=== PATIENT | female | born 1995 | race Caucasian/White ===

== ENCOUNTER → 2016-04-29 | Outpatient (CLI) | payer BC ==
[~2016-04-29] MED LIST: BUPR300T43 PO; FLUO40CA12 PO; FLUT100P6 MC; ONDA8TAB9 PO; PYRI100T2 PO; SULF1TAB35 PO
--- OUTSIDE RECORDS SUMMARY | 2016-04-29 08:22 | XMS REPORT ---
Author ALE [facility] eClinicalWorks Address Unknown Phone Unavailable Care Team Providers Care Car Spotter Name Role Phone ALE ALVARADO Unavailable Allergies No Known Allergies Problems Problem Type Condition Code Onset Dates Condition Status Assessment Major depressive disorder, recurrent episode, moderate F33.1 Active Problem Major depressive disorder, recurrent episode, moderate F33.1 Active Medications No Known Medications Procedures Procedure Coding System Code Date Psych diagnostic evaluation, new patient CPT-4 [id number] Mar 17, 2015 Results No Known Results Summary Purpose eClinicalWorks Submission
--- NOTE | 2016-04-29 12:27 | Diagnostic Imaging Report ---
PROCEDURE: US Gallbladder. TECHNIQUE: Multiple real-time grayscale images were obtained over the right upper quadrant in various projections. INDICATION: Abdominal pain. COMPARISON: There are no prior studies available for comparison. FINDINGS: There is no evidence for cholelithiasis or acute cholecystitis and the common bile duct is not dilated. The liver is not enlarged and there is no focal mass involving the liver. The biliary tree is not abnormally distended. The pancreas and right kidney are within normal limits. There is no mass or free fluid collection evident. IMPRESSION: 1. There is no acute abnormality of the right upper quadrant. 2. If clinical concern regarding an underlying abnormality of the gallbladder persists and further imaging is desired, then a nuclear medicine hepatobiliary scan would be recommended for additional study. Dictated by: Dictated on workstation # [id number]
== END ==
LOC: RAD 08:20
PROVIDERS: ATTEND Nurse Practitioner Primary Care
DX: R10.13 Epigastric pain (principal)
CPT/HCPCS: 76705

== ENCOUNTER → 2016-05-06 | Outpatient (CLI) | payer BC ==
[2016-05-06] MEDS: CATHETER FLUSH 10 ML SYR IV PRN (13:14)
--- NOTE | 2016-05-06 15:35 | Diagnostic Imaging Report ---
EXAMINATION: HIDA with EF measurements Indication: Abdominal pain TECHNIQUE: After the intravenous administration of 4.8 mCi of Tc 99m Choletec, imaging over the abdomen was obtained. This was followed by administration of Ensure orally to stimulate intrinsic CCK secretion, followed by continued imaging with ejection fraction measured. FINDINGS: There is homogeneous uptake in the liver with prompt bile duct and gallbladder filling seen. Bowel activity is seen at 15 minutes. Based on further imaging and gallbladder area of interest activity measurements after the administration of Ensure, the gallbladder ejection fraction is estimated at 10%. IMPRESSION: 1. Normal hepatobiliary uptake and Gallbladder filling. 2. Biliary dyskinesia. Poor gallbladder ejection fraction. Dictated by: Dictated on workstation # [id number]
== END ==
LOC: CARD 12:54
PROVIDERS: ATTEND Nurse Practitioner Family
DX: K82.8 Other specified diseases of gallbladder (principal)
CPT/HCPCS: 78227

== ENCOUNTER 2016-07-08 17:17 | Emergency (ER) | payer BC ==
[~2016-07-08] VITALS: Ht 170.2 cm; Wt 78.0 kg
--- NOTE | 2016-07-08 17:35 | ED Chest Pain ---
General Chief Complaint: Chest Pain Stated Complaint: CHEST PAINS Source: patient Exam Limitations: no limitations History of Present Illness Time seen by provider: 17:34 Initial Comments To ER with epigastric and lower chest pain that began this afternoon at 4 p.m. while at rest. She did have some associated shortness of breath at this time she is back to normal without any dyspnea or chest pain. She had some nausea and sweating as well. She did have an IUD placed this morning and was told to expect some nausea and pain. No fevers or chills. No cough. Timing/Duration: 1-2 days Severity/Quality: aching Location: central, epigastric Activities at Onset: none ASA po FIELD CONTACT PERSON: No Associated Symptoms: No abdominal pain, No back pain, diaphoresis, No dizziness , No edema, No nausea/vomiting Allergies and Home Medications Allergies Coded Allergies: No Known Drug Allergies (Unverified , 07/08/16) Home Medications Bupropion HCl 300 Mg Tab.er.24h, 300 MG PO, (Reported) Fluoxetine HCl 40 Mg Capsule, 40 MG PO, (Reported) Fluticasone Propionate 100 Gm Powder, 100 GM MC, (Reported) Pyridoxine HCl 100 Mg Tablet, 100 MG PO, (Reported) Review of Systems Constitutional: see HPI EENTM: No Symptoms Reported Respiratory: No Symptoms Reported Cardiovascular: See HPI, Chest Pain Gastrointestinal: See HPI, Abdominal Pain Genitourinary: No Symptoms Reported Musculoskeletal: no symptoms reported Skin: no symptoms reported Psychiatric/Neurological: No Symptoms Reported Endocrine: No Symptoms Reported Past Jhkxhsv-Njaynb-Rgszys Hx Patient Social History Recent Foreign Travel: No Contact w/Someone Who Travel: No Physical Exam Vital Signs Vital Sign - Last 12Hours 07/08/16 17:30 Temp 97.7 Pulse 91 Resp 14 B/P (MAP) 121/54 Pulse Ox 100 O2 Delivery Room Air Capillary Refill : General Appearance: No Apparent Distress, WD/WN HEENT: PERRL/EOMI, TMs Normal Neck: Full Range of Motion, Normal Inspection Respiratory: No Accessory Muscle Use, No Respiratory Distress Cardiovascular: Regular Rate, Rhythm, Normal Peripheral Pulses Gastrointestinal: Normal Bowel Sounds, Non Tender, Soft Extremity: Normal Capillary Refill, Normal Inspection Neurologic/Psychiatric: Alert, Oriented x3, No Motor/Sensory Deficits Skin: Normal Color, Warm/Dry Progress/Results/Core Measures Results/Orders Lab Results Laboratory Tests Test 07/08/16 17:39 07/08/16 18:07 Range/Units Urine Color YELLOW Urine Clarity CLEAR Urine pH 7 5-9 Urine Specific [place] 1.015 L 1.016-1.022 Urine Protein 2+ H NEGATIVE Urine Glucose (UA) NEGATIVE NEGATIVE Urine Ketones NEGATIVE NEGATIVE Urine Nitrite NEGATIVE NEGATIVE Urine Bilirubin NEGATIVE NEGATIVE Urine Urobilinogen NORMAL NORMAL MG/DL Urine Leukocyte Esterase 2+ H NEGATIVE Urine RBC (Auto) 5+ H NEGATIVE Urine RBC 5-10 H /HPF Urine WBC 5-10 H /HPF Urine Squamous Epithelial Cells 10-25 H /HPF Urine Crystals PRESENT H /LPF Urine Amorphous Sediment MOD TRAM URATES H /LPF Urine Bacteria MODERATE H /HPF Urine Casts NONE /LPF Urine Mucus NEGATIVE /LPF Urine Culture Indicated YES White Blood Count 15.4 H 4.3-11.0 10^3/uL Red Blood Count 4.63 4.35-5.85 10^6/uL Hemoglobin 13.8 11.5-16.0 G/DL Hematocrit 40 35-52 % Mean Corpuscular Volume 86 80-99 FL Mean Corpuscular Hemoglobin 30 25-34 PG Mean Corpuscular Hemoglobin Concent 35 32-36 G/DL Red Cell Distribution Width 13.1 10.0-14.5 % Platelet Count 329 130-400 10^3/uL Mean Platelet Volume 9.8 7.4-10.4 FL Neutrophils (%) (Auto) 82 H 42-75 % Lymphocytes (%) (Auto) 10 L 12-44 % Monocytes (%) (Auto) 7 0-12 % Eosinophils (%) (Auto) 0 0-10 % Basophils (%) (Auto) 0 0-10 % Neutrophils # (Auto) 12.6 H 1.8-7.8 X 10^3 Lymphocytes # (Auto) 1.6 1.0-4.0 X 10^3 Monocytes # (Auto) 1.1 H 0.0-1.0 X 10^3 Eosinophils # (Auto) 0.1 0.0-0.3 10^3/uL Basophils # (Auto) 0.0 0.0-0.1 10^3/uL D-Dimer 0.44 0.00-0.49 UG/ML Sodium Level 139 135-145 MMOL/L Potassium Level 3.7 3.6-5.0 MMOL/L Chloride Level 109 H 98-107 MMOL/L Carbon Dioxide Level 20 L 21-32 MMOL/L Anion Gap 10 5-14 MMOL/L Blood Urea Nitrogen 9 7-18 MG/DL Creatinine 0.74 0.60-1.30 MG/DL Estimat Glomerular Filtration Rate > 60 BUN/Creatinine Ratio 12 Glucose Level 114 H 70-105 MG/DL Calcium Level 9.3 8.5-10.1 MG/DL Total Bilirubin 0.5 0.1-1.0 MG/DL Aspartate Amino Transf (AST/SGOT) 54 H 5-34 U/L Alanine Aminotransferase (ALT/SGPT) 38 0-55 U/L Alkaline Phosphatase 62 40-136 U/L Total Protein 7.0 6.4-8.2 G/DL Albumin 4.1 3.2-4.5 G/DL Lipase 42 8-78 U/L My Orders Orders - MAG JOSE APRN Cbc With Automated Diff (07/08/16 17:33) Comprehensive Metabolic Panel (07/08/16 17:33) Lipase (07/08/16 17:33) Ua Culture If Indicated (07/08/16 17:33) Chest Pa/Lat (2 View) (07/08/16 17:33) Ekg Tracing (07/08/16 17:33) Fibrin Degradation Products (07/08/16 17:52) Urine Culture (07/08/16 17:39) Manual Differential (07/08/16 18:07) Ondansetron Oral Dissolve Tab (Zofran (07/08/16 19:00) Vital Signs/I&O Vital Sign - Last 12Hours 07/08/16 07/08/16 17:30 17:30 Temp 97.7 Pulse 91 Resp 14 B/P (MAP) 121/54 Pulse Ox 100 O2 Delivery Room Air Room Air Diagnostic Imaging Diagonstic Imaging: Xray Plain Films/CT/US/NM/MRI: chest Comments NAME: MARLA VANCE [facility] REC#: [id number] PT STATUS: REG ER : 1995 PHYSICIAN: MAG JOSE APRN ADMIT DATE: 07/08/16/ER Draft Date of Exam:07/08/16 CHEST PA/LAT (2 VIEW) INDICATION: 20-year-old female with shortness of breath and chest pain. COMPARISON: None. FINDINGS: PA and lateral films of the chest show prominent central lung markings with peribronchial cuffing. Some basilar atelectatic infiltrates seen but no significant consolidations. Cardiac contour is normal. There is no effusion or pneumothorax. Soft tissues and bony thorax are normal. IMPRESSION: Central reactive airway changes such as bronchitis with some minimal perihilar and bibasilar atelectatic infiltrates but no significant consolidations. Dictated on workstation # [id number] Dict: 07/08/16 1808 Trans: 07/08/16 1811 JERRI [id number] Interpreted by: ANDRE VILLALOBOS MD Electronically signed by: Departure Communication Progress Notes 1858-patient has been without chest pain or shortness of breath during her entire ER stay. Her only complaint is of some nausea. Impression Impression: Primary Impression: Urinary tract infection Additional Impressions: Leukocytosis chest pain resolved Departure-Patient Inst. Decision time for Depature: 18:58 Referrals: ALONDRA BOND DO (PCP/Family) Primary Care Physician Patient Instructions: Chest Pain That Is Not Caused by the Heart (DC) Add. Discharge Instructions: 1. Return to ER for any concerns 2. Nausea medication and antibiotics as directed 3. Follow-up with your doctor later this week All discharge instructions reviewed with patient and/or family. Voiced understanding. Scripts Sulfamethoxazole/Trimethoprim (Bactrim Ds Tablet) 1 Each Tablet 1 EACH PO BID, #10 TAB Prov: MAG JOSE APRN 07/08/16 Ondansetron (Zofran Odt) 8 Mg Tab.rapdis 8 MG PO Q6H Y for NAUSEA/VOMITING-1ST LINE, #10 TAB Prov: MAG JOSE VP STRATEGIC PLANNING 07/08/16 MAG JOSE VP STRATEGIC PLANNING July 08, 2016 17:35
[2016-07-08] MEDS ORDERED: FLUT100P6 MC (17:39)
[2016-07-08] MEDS ORDERED: PYRI100T2 PO (17:39)
[2016-07-08] MEDS ORDERED: FLUO40CA12 PO (17:39)
[2016-07-08] MEDS ORDERED: BUPR300T43 PO (17:39)
[2016-07-08 17:49] LABS: BILIRUBIN,URINE NEGATIVE (NEGATIVE); KETONES,URINE NEGATIVE (NEGATIVE); LEUKOCYTE ESTERASE ,URINE 2+ (NEGATIVE); NITRITE,URINE NEGATIVE (NEGATIVE); PH,URINE 7 (5-9); PROTEIN,URINE 2+ (NEGATIVE); UROBILINOGEN,URINE NORMAL (NORMAL)
--- NOTE | 2016-07-08 18:12 | Diagnostic Imaging Report ---
INDICATION: 20-year-old female with shortness of breath and chest pain. COMPARISON: None. FINDINGS: PA and lateral films of the chest show prominent central lung markings with peribronchial cuffing. Some basilar atelectatic infiltrates seen but no significant consolidations. Cardiac contour is normal. There is no effusion or pneumothorax. Soft tissues and bony thorax are normal. IMPRESSION: Central reactive airway changes such as bronchitis with some minimal perihilar and bibasilar atelectatic infiltrates but no significant consolidations. Dictated by: Dictated on workstation # [id number]
[2016-07-08 18:26] LABS: BASOPHILS % (AUTO) 0 % (0-10); EOSINOPHILS # (AUTO) 0.1 10^3/uL (0.0-0.3); EOSINOPHILS % (AUTO) 0 % (0-10); LYMPHOCYTES # (AUTO) 1.6 X 10^3 (1.0-4.0); LYMPHOCYTES % (AUTO) 10 % (12-44); MEAN CORPUSCULAR HEMOGLOBIN 30 PG (25-34); MEAN CORPUSCULAR HGB CONC 35 G/DL (32-36); MEAN CORPUSCULAR VOLUME 86 FL (80-99); MEAN PLATELET VOLUME 9.8 FL (7.4-10.4); MONOCYTES # (AUTO) 1.1 X 10^3 (0.0-1.0); MONOCYTES % (AUTO) 7 % (0-12); NEUTROPHILS # (AUTO) 12.6 X 10^3 (1.8-7.8); NEUTROPHILS % (AUTO) 82 % (42-75); PLATELET COUNT 329 10^3/uL (130-400); RED BLOOD COUNT 4.63 10^6/uL (4.35-5.85); RED CELL DISTRIBUTION WIDTH 13.1 % (10.0-14.5); WHITE BLOOD COUNT 15.4 10^3/uL (4.3-11.0)
[2016-07-08 18:39] LABS: ALANINE AMINOTRANSFERASE 38 U/L (0-55); ALBUMIN 4.1 G/DL (3.2-4.5); ANION GAP 10 MMOL/L (5-14); ASPARTATE AMINO TRANSFERASE 54 U/L (5-34); BILIRUBIN,TOTAL 0.5 MG/DL (0.1-1.0); BLOOD UREA NITROGEN 9 MG/DL (7-18); BUN/CREATININE RATIO 12; CALCIUM 9.3 MG/DL (8.5-10.1); CARBON DIOXIDE 20 MMOL/L (21-32); CHLORIDE 109 MMOL/L (98-107); CREATININE SERUM 0.74 MG/DL (0.60-1.30); GFR ESTIMATED > 60; GLUCOSE 114 MG/DL (70-105); LIPASE 42 U/L (8-78); POTASSIUM 3.7 MMOL/L (3.6-5.0); SODIUM 139 MMOL/L (135-145)
[2016-07-08 18:58] VITALS: BP 120/68
[2016-07-08] MEDS ORDERED: ONDA8TAB9 PO (18:59)
[2016-07-08] MEDS ORDERED: SULF1TAB35 PO (18:59)
[2016-07-08] MEDS ORDERED: ONDANSETRON 4 MG (ZOFRAN) ORAL DISSOLVE TAB PO ONE (19:00)
[2016-07-08 19:03] LABS: BAND NEUTROPHILS 2 %; BASOPHILS % (MANUAL) 1 %; EOSINOPHILS % (MANUAL) 0 %; LYMPHOCYTES % (MANUAL) 13 %; NEUTROPHILS % (MANUAL) 79 %
== END 2016-07-08 19:03 | disposition home or self-care (01) ==
LOC: EDUNIT# 17:17 → ER 17:18
DX: N39.0 Urinary tract infection, site not specified (principal); R07.9 Chest pain, unspecified
CPT/HCPCS: 36415; 71020; 80053; 81000; 83690; 85007; 85027; 85379; 87088; 93005

== ENCOUNTER 2017-02-21 05:32 | Outpatient (CLI) | payer BC ==
[~2017-02-21] VITALS: Ht 170.2 cm; Wt 78.0 kg
[2017-02-21] MEDS ORDERED: VORT10TA PO (09:14)
[2017-02-21] MEDS ORDERED: FLUT16SP22 NSEACH (09:14)
== END 2017-02-21 09:30 ==
LOC: PREOP 05:32
PROVIDERS: ATTEND Otolaryngology Otolaryngology/Facial Plastic Surgery
DX: Z01.818 Encounter for other preprocedural examination (principal); J34.2 Deviated nasal septum; J34.3 Hypertrophy of nasal turbinates

== ENCOUNTER 2017-02-25 07:35 | Day surgery (SDC) | payer BC ==
[~2017-02-25] VITALS: Ht 170.2 cm; Wt 78.0 kg
[~2017-02-25 07:35] MED LIST changes: +FLUT16SP22 NSEACH; +VORT10TA PO
[2017-02-25 07:50] VITALS: BP 121/73
[2017-02-25 08:20] LABS: BASOPHILS % (AUTO) 0 % (0-10); EOSINOPHILS % (AUTO) 1 % (0-10); LYMPHOCYTES # (AUTO) 2.5 X 10^3 (1.0-4.0); LYMPHOCYTES % (AUTO) 33 % (12-44); MEAN CORPUSCULAR HEMOGLOBIN 31 PG (25-34); MEAN CORPUSCULAR HGB CONC 35 G/DL (32-36); MEAN CORPUSCULAR VOLUME 89 FL (80-99); MEAN PLATELET VOLUME 9.9 FL (7.4-10.4); MONOCYTES # (AUTO) 0.7 X 10^3 (0.0-1.0); MONOCYTES % (AUTO) 9 % (0-12); NEUTROPHILS # (AUTO) 4.3 X 10^3 (1.8-7.8); NEUTROPHILS % (AUTO) 57 % (42-75); PLATELET COUNT 309 10^3/uL (130-400); RED BLOOD COUNT 4.33 10^6/uL (4.35-5.85); RED CELL DISTRIBUTION WIDTH 12.8 % (10.0-14.5); WHITE BLOOD COUNT 7.5 10^3/uL (4.3-11.0)
[2017-02-25] MEDS: LACTATED RINGERS 1,000 ML IV PRN ×2 (08:20→10:27)
[2017-02-25 08:40] LABS: ANION GAP 8 MMOL/L (5-14); BLOOD UREA NITROGEN 9 MG/DL (7-18); BUN/CREATININE RATIO 14; CALCIUM 8.9 MG/DL (8.5-10.1); CARBON DIOXIDE 21 MMOL/L (21-32); CHLORIDE 109 MMOL/L (98-107); CREATININE SERUM 0.66 MG/DL (0.60-1.30); GFR ESTIMATED > 60; GLUCOSE 97 MG/DL (70-105); POTASSIUM 4.2 MMOL/L (3.6-5.0); SODIUM 138 MMOL/L (135-145)
--- NOTE | 2017-02-25 08:54 | Progress Note-Pre Operative ---
Pre-Operative Progress Note H&P Reviewed The H&P was reviewed, patient examined and no changes noted. Date Seen by Provider: Feb 25, 2017 Time Seen by Provider: 08: Date H&P Reviewed: Feb 25, 2017 Time H&P Reviewed: 08:30 Pre-Operative Diagnosis: Deviataed Nasal Septum, Bilat Hyper of the INf Turbs GREGORIO DYER MD Feb 25, 2017 8:53 am
[2017-02-25] MEDS ORDERED: COCAINE HCL 4% 2 ML SYR ONE (09:15)
[2017-02-25] MEDS ORDERED: LIDOCAINE/EPI 1%-1:200,000 (XYLOCAINE) 10 ML VIAL ONE ×2 (09:15→10:06)
[2017-02-25] MEDS ORDERED: PHENYLEPHRINE 0.5% NASAL SPR (NEO-SYNEPHRINE) REG ONE (09:15)
[2017-02-25] MEDS ORDERED: DEXAMETHASONE 10 MG/ML (DECADRON) 1 ML VIAL ONE (09:19)
[2017-02-25] MEDS ORDERED: GLYCOPYRROLATE 0.2 MG/ML (ROBINUL) 2 ML VIAL ONE (09:19)
[2017-02-25] MEDS ORDERED: proPOfol 200 MG/20 ML (DIPRIVAN) VIAL IV ONE (09:19)
[2017-02-25] MEDS ORDERED: ONDANSETRON 4 MG/2 ML (SDV) Z0FRAN ONE (09:19)
[2017-02-25] MEDS ORDERED: ROCURONIUM 50 MG/5 ML (ZEMURON) VIAL IV ONE (09:19)
[2017-02-25] MEDS ORDERED: LIDOCAINE PF 2% 5 ML (XYLOCAINE) VIAL ONE (09:19)
[2017-02-25] MEDS ORDERED: NEOSTIGMINE (BLOXIVERZ ) 1 MG/1ML 10 ML VIAL ONE (09:19)
[2017-02-25] MEDS ORDERED: SEVOFLURANE (ULTANE) 15 ML INHAL SOLN ONE (09:19)
[2017-02-25] MEDS ORDERED: MIDAZOLAM 2 MG/2 ML (VERSED) VIAL ONE (09:20)
[2017-02-25] MEDS ORDERED: fentaNYL INJECTION 100 MCG/2 ML AMP ONE (09:20)
[2017-02-25] MEDS ORDERED: morphine INJ 10 MG/ML 1ML (SYR OR VIAL) ONE (10:33)
[2017-02-25] MEDS ORDERED: D5 1/2 NS W/KCL 20 MEQ/L 1,000 ML IV SCH (10:35)
--- NOTE | 2017-02-25 10:35 | Progress Note-Post Operative ---
Post-Operative Progess Note Surgeon (s)/Emergency Veterinary Technician (s) Surgeon GREGORIO DYER MD Emergency Veterinary Technician n/a Pre-Operative Diagnosis Deviataed Nasal Septum, Bilat Hyper of the INf Turbs Post-Operative Diagnosis same Post-Op Procedure Note Date of Procedure: Feb 25, 2017 Name of Procedure Performed: Naal Septoplsaty, Bilat REd of the Inf Turbs Description & Findings Description and Findings: n/a Anesthesia Type get Estimated Blood Loss minimal Packing none. Specimen(s) collected/removed nasal septum GREGORIO DYER MD Feb 25, 2017 10:35 am
[2017-02-25] MEDS ORDERED: HYDROmorphone (DILAUDID) 2 MG/ML VIAL IVP PRN (10:45)
[2017-02-25] MEDS ORDERED: PROMETHAZINE INJ 25 MG/ML (PHENERGAN) AMP IVP PRN (10:45)
[2017-02-25] MEDS ORDERED: MEPERIDINE (DEMEROL) INJ 50 MG/ML IVP PRN (10:45)
[2017-02-25] MEDS ORDERED: ONDANSETRON 4 MG/2 ML (SDV) Z0FRAN IVP PRN (10:45)
[2017-02-25] MEDS ORDERED: ACETAMINOPHEN 325 MG TABLET/CAPLET (TYLENOL) PO PRN (10:45)
[2017-02-25] MEDS ORDERED: HYDROcodone/APAP 5 MG/325 MG (LORTAB) TAB PO PRN (10:45)
[2017-02-25] MEDS: morphine INJ 10 MG/ML 1ML (SYR OR VIAL) IVP PRN ×2 (10:46→10:51)
[2017-02-25 11:45] VITALS: BP 138/85
[2017-02-25 11:46] VITALS: BP 138/85
[2017-02-25] MEDS ORDERED: HYDR-3812 PO (12:13)
[2017-02-25] MEDS ORDERED: AMOX-355 PO (12:13)
[2017-02-25 12:15] VITALS: BP 128/76
[2017-02-25 12:45] VITALS: BP 124/77
== END 2017-02-25 13:35 | disposition home or self-care (01) ==
LOC: SDC 07:35
PROVIDERS: ATTEND Otolaryngology Otolaryngology/Facial Plastic Surgery
DX: J34.2 Deviated nasal septum (principal); J34.3 Hypertrophy of nasal turbinates
CPT/HCPCS: 36415; 80048; 84703; 85025; 87081